=== PATIENT | female | born 1940 | race Two or more races ===

== ENCOUNTER 2020-12-21 11:18 | Outpatient (CLI) | payer OTHER | END 2020-12-21 11:48 | disposition home or self-care (01) | LOC: TOM 11:18 | DX: R04.0 Epistaxis (principal) ==

== ENCOUNTER → 2024-03-02 07:33 | Outpatient (CLI) | payer OTHER | END | disposition home or self-care (01) | LOC: NUCLEAR 07:00 | DX: R07.9 Chest pain, unspecified (principal) | CPT/HCPCS: 78452; 93017; A9500; J0153 ==

== ENCOUNTER 2024-04-13 14:25 | Outpatient (CLI) | payer OTHER ==
[2024-04-13 15:44] LABS: CREATININE SERUM 0.7 mg/dL (0.55-1.02)
== END 2024-04-13 14:26 | disposition home or self-care (01) ==
LOC: LAB 14:25
PROVIDERS: ATTEND Radiology Diagnostic Radiology
DX: R10.30 Lower abdominal pain, unspecified (principal)

== ENCOUNTER 2024-04-14 07:05 | Outpatient (CLI) | payer OTHER | END 2024-04-14 07:17 | disposition home or self-care (01) | LOC: MRI 07:05 | PROVIDERS: ATTEND Pediatrics | DX: M25.562 Pain in left knee (principal); M17.9 Osteoarthritis of knee, unspecified | CPT/HCPCS: 73723; Q9965; 73722 ==

== ENCOUNTER 2024-11-16 07:48 | Outpatient (CLI) | payer OTHER | END 2024-11-16 07:49 | disposition home or self-care (01) | LOC: NUCLEAR 07:48 | PROVIDERS: ATTEND Internal Medicine | DX: I65.29 Occlusion and stenosis of unspecified carotid artery (principal) ==

== ENCOUNTER 2024-11-16 08:58 | Outpatient (CLI) | payer OTHER | END 2024-11-16 09:01 | disposition home or self-care (01) | LOC: RAD 08:58 | PROVIDERS: ATTEND Internal Medicine | DX: I11.9 Hypertensive heart disease without heart failure (principal); E78.2 Mixed hyperlipidemia ==

== ENCOUNTER → 2025-01-26 11:23 | Outpatient (CLI) | payer OTHER | END | disposition home or self-care (01) | LOC: SONOGRAMA 11:23 | PROVIDERS: ATTEND Specialist | DX: R31.0 Gross hematuria (principal); R31.9 Hematuria, unspecified; N20.9 Urinary calculus, unspecified ==